=== PATIENT | female | born 1960 | race African-American/Black ===

== ENCOUNTER 2022-06-17 19:44 | Emergency (ER) | payer BC ==
[~2022-06-17] VITALS: Ht 160 cm; Wt 70.3 kg
[2022-06-17] MEDS ORDERED: CLEOCIN HCL300 MG PO (20:25)
[2022-06-17] MEDS ORDERED: AQUAPHOR99 GM TOP (20:29)
[2022-06-17 20:40] VITALS: BP 161/97
== END 2022-06-17 20:40 | disposition home or self-care (01) ==
LOC: FSED 19:52
DX: L03.116 Cellulitis of left lower limb (principal); Y93.E8 Activity, other personal hygiene
CPT/HCPCS: 99282